=== PATIENT | male | born 1980 | race Caucasian/White ===

== ENCOUNTER → 2021-05-01 12:00 | Outpatient (CLI) | payer OTHER, SELFPAY ==
--- NOTE | ~2021-05-01 | MR_ITS ---
EXAMINATION: MR knee LT wo con DATE: 05/01/2021 12:43 INDICATION: Left knee pain TECHNIQUE: Magnetic resonance imaging (MRI) of the left knee was performed without intravenous contra st. Sequences included coronal PD-weighted FSE, coronal PD-weighted FS FSE, sagittal T2-weighted FSE , sagittal PD-weighted FS FSE and axial PD weighted fat saturated FSE. COMPARISON: None. FINDINGS: Medial compartment: There is a longitudinal horizontal tear of the body and posterior horn of the medial meniscus which e xtends to the superior articular surface near the free edge. There are a few tiny para labral cysts a t the periphery of the body and posterior horn. Articular cartilage is normal. Lateral compartment: Lateral meniscus is normal. Small region of heterogeneous cartilage signal at the central aspect of t he lateral tibial plateau and juxtaposed anterior weightbearing medial femoral condyle which could be due to chondrocalcinosis or partial thickness fissuring. There is deep fissuring with minimal underl annabelle subarticular edema at the posterior most weightbearing lateral femoral condyle. Patellofemoral compartment: Articular cartilage is normal. Ligaments and tendons: Anterior and posterior cruciate ligaments are normal. The medial collateral ligament and fibular pepito ateral ligament complex are normal. The extensor mechanism is normal. The visualized medial and later al hamstring tendons as well as the iliotibial band are normal. Fluid: Minimal joint effusion at the suprapatellar pouch. No loose osteochondral bodies identified. Osseous/other: Normal marrow signal aside from the previous noted minimal subarticular edema at the posterior weight bearing lateral femoral condyle. No fracture or pathologic marrow replacing process. IMPRESSION: 1. Longitudinal horizontal tear with a few tiny per meniscal cysts at the periphery of the body and p osterior horn of the medial meniscus. 2. Small region of high-grade chondromalacia with minimal subarticular edema at the posterior weightb earing lateral femoral condyle. 3. Minimal left knee joint effusion. Reviewed, dictated and finalized at location A. IMPRESSION: 1. Longitudinal horizontal tear with a few tiny per meniscal cysts at the perip gisselle of the body and posterior horn of the medial meniscus. 2. Small region of high-grade chondromalacia with minimal subarticular edema at the posterior weightbearing lateral femoral condyle. 3. Minimal left knee joint effusion.
== END ==
DX: S83.242A Other tear of medial meniscus, current injury, left knee, initial encounter (principal); M94.262 Chondromalacia, left knee; M25.462 Effusion, left knee
CPT/HCPCS: 73721

== ENCOUNTER 2024-07-12 09:11 | Outpatient (CLI) | payer OTHER, SELFPAY ==
--- NOTE | ~2024-07-12 | XR_ITS ---
Supine and upright views of the abdomen Clinical history: Abnormal weight loss Findings: Bowel gas pattern is nonspecific. No evidence for obstruction or free air. No abnormal mass lesion or calcification is seen, aside from probable calcified pelvic phleboliths. Osseous structure s are intact. Impression: No significant abnormality is seen. Reviewed, dictated and finalized at [facility]. Impression: No significant abnormality is seen.
== END 2024-07-12 09:12 | disposition home or self-care (01) ==
PROVIDERS: PCP Family Medicine; Visit Provider Family Medicine
DX: R63.4 Abnormal weight loss (principal)
CPT/HCPCS: 74021

== ENCOUNTER 2024-11-23 05:19 | Day surgery (SDC) | payer OTHER, SELFPAY ==
[2024-11-08 11:00] VITALS: BMI 20.3
--- OUTSIDE RECORDS SUMMARY | 2024-11-23 05:22 | XMS_ITS | Clinical Summary ---
Author Organization [facility] Address [address] [place] [address] Phone Care Team Providers Care Equipment Washer Name Role Phone Lester Govea MD Primary Care Provider [phone] Allergies No known active allergies Medications ibuprofen (MOTRIN) 200 mg tablet Take 800 mg by mouth 1 time daily as needed for Pain, Mild. Active omeprazole (PriLOSEC) 20 mg Capsule, Delayed Release(E.C.) Take 1 Capsule (20 mg) by mouth daily. 90 Capsule 3 06/25/2021 Active lisinopriL (PRINIVIL) 10 mg tablet TAKE 1 TABLET BY MOUTH DAILY 100 Tablet 3 07/14/2023 Active Active Problems Problem Noted Date Diagnosed Date Benign hypertension 10/08/2015 Allergic rhinitis 02/09/2011 Resolved Problems Problem Noted Date Diagnosed Date Resolved Date Gastroesophageal reflux dise ase without esophagitis 07/30/2020 07/30/2020 Bilateral elbow joint pain 12/22/2016 0 11/17/2017 Synovitis of elbow 12/22/2016 8 Tobacco use 08/07/2015 12/02/2015 Immunizations Immunization Administration Dates Next Due (TDVAX)(7 YRS UP) TETANUS AN D DIPHTHERIA TOXOIDS, ADSORBED (2 LF OF TETANUS TOXOID AND 2 LF OF DIPHTHERIA TOXOID), 0.5ML (PF), IM 12/01/2008 INFLUENZA VACCINE QUADRIVALE NT 6 MOS UP PF IM 06/25/2021,07/30/2020,07/30/2019 Influenza Seasonal Unspecifi ed Formulation IM 07/03/2017,08/07/2016,08/06/2015,2010,07/12/2010 Family History Medical History Relation Name Comments Cancer Father prostate Hypertension Father Hypertension Paternal Grandfather and has pacemaker Stroke Paternal Grandfather Hypertension Paternal Grandmother Colon Cancer Neg Hx Relation Name Status Comments Father Paternal Grandfather Paternal Grandmother Social History Tobacco Use Types Packs/Day Years Used Date Smoking Tobacco: Former Cigarettes 0 3 1 10/07/2011 - 08/15/2015 Smokeless Tobacco: Never Alcohol Use Standard Drinks/Week Comments Not Currently 0 (1 standard drink = 0.6 oz pur e alcohol) Sex and Gender Information Value Date Recorded Sex Assigned at Not on file Legal Sex Male 5:41 AM SUPERVISOR SOAKERS Gender Identity Not on file Sexual Orientation Not on file Last Filed Vital Signs Vital Sign Reading Time Taken Comments Blood Pressure 110/70 12/09/2021 11:48 AM SUPERVISOR SOAKERS Pulse 77 12/09/2021 11:48 AM SUPERVISOR SOAKERS Temperature 37.2 C (98.9 F) 12/09/2021 11:48 AM SUPERVISOR SOAKERS Respiratory Rate 12 12/09/2021 11:48 AM SUPERVISOR SOAKERS Oxygen Saturation 98% 12/09/2021 11:48 AM SUPERVISOR SOAKERS Inhaled Oxygen Concentration - - Weight 68 kg (150 lb) 12/09/2021 11:48 AM SUPERVISOR SOAKERS Height 180.3 cm (5' 11 ) 12/09/2021 11:48 AM SUPERVISOR SOAKERS Body Mass Index 20.92 12/09/2021 11:48 AM SUPERVISOR SOAKERS Plan of Treatment Health Maintenance Due Date Last Done Comments HEPATITIS B VACCINES (1 of 3 - 19+ 3-dose series) 1997 DTAP/TDAP/TD VACCINES (1 - Tdap) 12/02/2008 12/01/2008 COLORECTAL SCREENING 2023 Colorectal Cancer Screening 2023 FIT-DNA Q 3 years 2023 FIT/FOBT Q 1 year 2023 Flex Sig/CT Colonography Q 5 years 2023 INFLUENZA VACCINE (#1) 2024 , 07/30/2020, 07/30/2019, Additional history exists Preventative Visit- Commercial 10/03/2024 06/25/2021, 07/30/2020, 07/30/2019, Additional history exists HPV VACCINES Aged Out No longer eligi ble based on patient's age to complete this topic PNEUMOCOCCAL VACCINE 0-64 YEARS Aged Out No longer eligible based on patient's age to complete this topic Insurance [facility] [id number] Advance Directives For more information, please contact: [phone] * Full Code (Latest Code Status on File) Date Activated Date Inactivated Comments 01/08/2021 1:25 PM 01/08/2021 5:20 PM * Full Code Date Activated Date Inactivated Comments 05/21/2016 1:13 PM 05/21/2016 4:44 PM Care Teams Equipment Washer Relationship Specialty Start Date End Date Lester Govea MD [address] [place] [id number] PCP - General 11/01/08
--- OUTSIDE RECORDS SUMMARY | 2024-11-23 05:22 | XMS_ITS | Referral Summary ---
Author Organization [facility] Address [address] [place] [id number] Care Team Providers Care Loom Fixer Supervisor Name Role Phone Lester Govea MD Primary Care Provider [phone] Allergies No known active allergies Medications lisinopriL (PRINIVIL,ZESTR IL) 10 mg tabletIndicatio ns:hypertension Take 10 mg by mouth daily before breakfast 1 Active ibuprofen (ibuprofen) 200 mg tab/cap Take 400 mg by mouth every 6 (six) hours as needed for pain Active omeprazole (PriLOSEC) 20 mg capsuleIndicati ons:Treatment of Non-Bleeding Gastric Disorder Take 20 mg by mouth daily Active HYDROcodone-jude taminophen (NORCO) 5-325 mg per tabletIndicatio ns:Pain TAKE 1-2 TABLETS EVERY 6 HOURS NEEDED FOR PAIN 12 tablet 2 Active Active Problems Problem Noted Date Diagnosed Date 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 4 or more times a week 09/23/2021 Q2: How many drinks containi ng alcohol do you have on a typical day when you are drinking? 1 or 2 Q3: How often do you have si x or more drinks on one occasion? Monthly 09/23/2021 Personal Safety Answer Date Recorded Getting School Help Needed Not on file 12/17 Sex and Gender Information Value Date Recorded Sex Assigned at Not on file Legal Sex Male 2:25 PM CDT Gender Identity Not on file Sexual Orientation Not on file Last Filed Vital Signs Vital Sign Reading Time Taken Comments Blood Pressure 126/81 10/07/2021 3:45 PM PLATE DEVELOPER Pulse 62 10/07/2021 3:50 PM PLATE DEVELOPER Temperature 37.2 C (99 F) 10/07/2021 3:35 PM PLATE DEVELOPER Respiratory Rate 13 10/07/2021 3:50 PM PLATE DEVELOPER Oxygen Saturation 99% 10/07/2021 3:50 PM PLATE DEVELOPER Inhaled Oxygen Concentration - - Weight 67 kg (147 lb 9.6 oz) 10/07/2021 12:29 PM PLATE DEVELOPER Height 180.3 cm (5' 11 ) 10/07/2021 12:29 PM PLATE DEVELOPER Body Mass Index 20.59 10/07/2021 12:29 PM PLATE DEVELOPER Plan of Treatment Not on file Insurance [facility] H[facility]/PPO Address: [facility] [address] [place] [address] [facility] H[facility]/PPO Address: [place] [address] [facility] H[facility]O Address: [place] [address] Advance Directives For more information, please contact: [phone] * Full Code (Latest Code Status on File) Date Activated Date Inactivated Comments 10/07/2021 3:04 PM 10/07/2021 8:06 PM Care Teams Loom Fixer Supervisor Relationship Specialty Start Date End Date Lester Govea MD [address] [facility] [address] [place] [address] PCP - General Critical Care Med 04/14/21
--- OUTSIDE RECORDS SUMMARY | 2024-11-23 05:22 | XMS_ITS | Clinical Summary ---
Author Organization [facility] Address [address] [place] [id number] Care Team Providers Care Imaging Technologist Name Role Phone Lester Govea MD Primary Care Provider [phone]- [phone] Allergies No known active allergies Medications lisinopriL [...] 04/27/2021 Benign hypertension 10/08/2015 Allergic rhinitis 02/09/2011 Surgical History Surgery Date Site/Laterality Comments ESOPHAGOGASTRODUODENOSCOPY 01/2021, 05/2016 Medical History Medical History Date Comments Hypertension Dxd ~2017 Hiatal hernia GERD (gastroesophageal reflux disease) well controlled Family History Medical History Relation Name Comments Hypertension Father Anesthesia problems Neg Hx Relation Name Status Comments Father Social History Tobacco Use Types Packs/Day Years [...] on file Sexual Orientation Not on file Obstetrics History Last Filed Vital Signs Vital Sign Reading Time Taken Comments Blood Pressure 126/81 10/07/2021 3:45 PM FIXTURE REPAIRER FABRICATOR Pulse 62 10/07/2021 3:50 PM FIXTURE REPAIRER FABRICATOR Temperature 37.2 C (99 F) 10/07/2021 3:35 PM FIXTURE REPAIRER FABRICATOR Respiratory Rate 13 10/07/2021 3:50 PM FIXTURE REPAIRER FABRICATOR Oxygen Saturation 99% 10/07/2021 3:50 PM FIXTURE REPAIRER FABRICATOR Inhaled Oxygen Concentration - - Weight 67 kg (147 lb 9.6 oz) 10/07/2021 12:29 PM FIXTURE REPAIRER FABRICATOR Height 180.3 cm (5' 11 ) 10/07/2021 12:29 PM FIXTURE REPAIRER FABRICATOR Body Mass Index 20.59 10/07/2021 12:29 PM FIXTURE REPAIRER FABRICATOR Plan of Treatment Not on file Insurance [employer] Advance Directives For more information, please contact: [phone] * Full Code (Latest Code Status on File) Date Activated Date Inactivated Comments 10/07/2021 3:04 PM 10/07/2021 8:06 PM Care Teams Imaging Technologist Relationship Specialty Start Date End Date Lester Govea MD [address] [facility] [address] [place] [address] PCP - General Critical Care Med 04/14/21
[2024-11-23 06:52] VITALS: BP 115/82; PULSE 74; RESP 16; TEMP 36.3; O2SAT 100
[2024-11-23] MEDS: LACTATED RINGERS 1,000 ML 150 ML IV CONT (07:00)
--- NOTE | 2024-11-23 07:07 | P.PNAN_ITS ---
Anes - Initial Pre Proc Eval Procedure: Operation Date: 11/23/24 08:00 Proposed Procedures p Colonoscopy - Dawit Arevalo MD Date/Time: 11/23/24 07:07 Surgeon: Dawit Arevalo MD Pre Op Diagnosis: chronic pain,abd pain,abdnormal weight loss Patient Data Age: 44 Gender: M Height: 1.83 m Weight: 67.1 kg Last Vital Signs Temp 97.4 F L 11/23/24 06:52 Pulse 74 11/23/24 06:52 Resp 16 11/23/24 06:52 BP 115/82 11/23/24 06:52 Pulse Ox 100 11/23/24 06:52 O2 Del Method Room Air 11/23/24 06:52 Allergies Allergy/AdvReac Type Severity Reaction Status Date / Time No Known Allergies Allergy Mild Verified 11/23/24 06:51 Home Medications ?Medication ?Instructions ?Recorded ?Confirmed ?Type sildenafil 50 mg tablet (Viagra) 50 mg PO DAILY PRN sexual activity 01/10/24 11/23/24 Rx #14 tabs Patient hx anesthesia problems: none Family hx anesthesia problems: none Results Review: All pre-operative results and documents have been reviewed as part of the pre- operative evaluation. [facility], [facility] Family History Family History Father Malignant neoplasm of prostate Hypertension Social History Social History Smoking status: Former smoker Tobacco type: cigarettes Alcohol intake: current Alcohol use details: vodka 1 drink per day Substance use: current Substance use type: marijuana Last use: daily Do You Feel Safe in your Home?: Yes Lack of Transportation: No Lack of Food: Never True Current Housing: I Have Housing Concerned About Future Housing: No Difficulty Paying Gas/Electric Bills: No Difficulty Paying for Meds: No Currently Unemployed: No Education: Associate Degree Difficulty w/ Childcare or Family Care: No Living arrangements: with family Spiritual care concerns: No Agree to blood products: Yes Anes - Eval Final PreProcedure Day of Procedure 11/23/24 07:07 Patient weight: normal Lungs: normal air movement Airway: Mallampati scale class II Neurological: alert and oriented Last oral intake: >/= 8 hours ASA classification: II Emergent: no Anesthetic plan: proceed Anesthesia type and monitoring: general GIVS and standard monitoring Results Review: All pre-operative results and documents have been reviewed as part of the pre- operative evaluation. Pt denies daily smoking, prev smoked. Informed Consent: The patient's anesthetic plan and its attendant risks and benefits were discussed with the patient/family/POA. Questions were solicited and answers provided to the satisfaction of the patient/family/POA.
[2024-11-23 08:20] VITALS: BP 110/71; PULSE 65; RESP 18; O2SAT 100
[2024-11-23 08:30] VITALS: BP 117/83; PULSE 56; RESP 18; O2SAT 100
[2024-11-23 08:40] VITALS: BP 128/89; PULSE 55; RESP 18; O2SAT 100
== END 2024-11-23 08:50 | disposition home or self-care (01) ==
PROVIDERS: PCP Family Medicine; Referring Provider Nurse Practitioner; Visit Provider Internal Medicine Gastroenterology
PROC: 0DJD8ZZ Inspection of Lower Intestinal Tract, Via Natural or Artificial Opening Endoscopic (ICD-10-PCS; CPT 45378; principal; 2024-11-23 08:00)
DX: Z12.11 Encounter for screening for malignant neoplasm of colon (principal); G89.29 Other chronic pain; F12.90 Cannabis use, unspecified, uncomplicated; Z87.891 Personal history of nicotine dependence; Z80.42 Family history of malignant neoplasm of prostate
CPT/HCPCS: 45378; J2003; J2704; J7120